=== PATIENT | female | born 1970 | race Caucasian/White ===

== ENCOUNTER 2021-09-27 15:28 | Emergency (ER) | payer MEDICAID ==
[~2021-09-27] VITALS: Ht 157.5 cm; Wt 54.4 kg
[~2021-09-27 15:28] MED LIST: CEPH-588 PO; IBUP-1842 PO
[2021-09-27 15:36] VITALS: BP 144/90
--- NOTE | 2021-09-27 15:46 | NUR ---
PT AMBULATED TO BED, STEADY GAIT
[2021-09-27] MEDS ORDERED: LIDOCAINE MPF 1% 10 MG/ML VIAL INJ ONE ×2 (16:05→16:10)
--- NOTE | 2021-09-27 16:08 | NUR ---
51 Y/O F PRESENTS TO ED WITH VAGINAL ABCESS FOR 1 WEEK. PT STATES SHE HAS HAD ABCESS FOR OVER 10 YEARS, COMES AND GOES. L OUTER LABIA IS RED AND SWOLLEN. DENIES N/V/D; SKIN IS PINK/WARM/DRY; AAOX4 WITH EVEN AND STEADY GAIT; LUNGS CLEAR BL; HR EVEN AND REGULAR; PT DENIES ANY FEVER, CP, SOB, OR COUGH AT THIS TIME; PATIENT STATES PAIN OF 6/10 AT THIS TIME; VSS; PATIENT POSITIONED FOR COMFORT; HOB ELEVATED; BEDRAILS UP X2; BED DOWN. ER MD MADE AWARE OF PT STATUS. PMH: DENIES MEDS: ADVIL PRN FOR PAIN
--- NOTE | 2021-09-27 16:08 | NUR ---
SEEN AND EXAMINED BY DR VILLASEÑOR.
--- NOTE | 2021-09-27 16:33 | NUR ---
I&D SET UP AT BED SIDE, PA NOTIFIED.
[2021-09-27] MEDS ORDERED: AMOX-1000 PO (17:03)
[2021-09-27] MEDS ORDERED: SULF-59 PO (17:03)
[2021-09-27] MEDS ORDERED: NAPR-54 PO (17:03)
--- NOTE | 2021-09-27 17:11 | NUR ---
PT BANDAGED IN PERINEAL AREA W/ 4X4 AND TAPE. APPROVED BY FREDDIE
[2021-09-27 17:21] VITALS: BP 144/90
--- NOTE | 2021-09-27 17:23 | NUR ---
Patient discharged with v/s stable. Written and verbal after care instructions given and explained. Patient alert, oriented and verbalized understanding of instructions. Ambulatory with steady gait. All questions addressed prior to discharge. ID band removed. Patient advised to follow up with PMD. Rx of AUGMENTIN, NAPROXEN,BACTRIM given. Patient educated on indication of medication including possible reaction and side effects. Opportunity to ask questions provided and answered.
== END 2021-09-27 17:23 | disposition home or self-care (01) ==
LOC: MED 15:28
DX: N75.1 Abscess of Bartholin's gland (principal); Z79.899 Other long term (current) drug therapy
CPT/HCPCS: 56420; 99284; J2001